=== PATIENT | male | born 1980 | race Caucasian/White ===

== ENCOUNTER → 2016-08-30 | Outpatient (CLI) | payer BC, OTHER ==
--- NOTE | 2016-08-30 10:50 | REP ---
KUB ABDOMEN AND PELVIS: Two KUB films of the abdomen and pelvis performed. No bowel obstruction is seen. There is moderate fecal material in the rectum and right colon. There are no dilated small bowel loops. No abnormal calcifications are seen. The visualized osseous structures appear unremarkable. IMPRESSION: No bowel obstruction. Moderate fecal material, rectum and right colon. Signed by Jovani Qiu MD 08/30/2016 12:15 P
== END ==
LOC: M LRY 10:04
PROVIDERS: ATTEND Physician Assistant
DX: R10.84 Generalized abdominal pain (principal)

== ENCOUNTER → 2016-09-18 | Outpatient (REF) | payer OTHER ==
[2016-09-18 12:08] LABS: MEAN CORPUSCULAR HEMOGLOBIN 31.6 pg (27.0-33.0); MEAN CORPUSCULAR HGB CONC 34.1 g/dl (32.0-36.5); MEAN CORPUSCULAR VOLUME 92.8 fl (80.0-96.0); RED CELL DISTRIBUTION WIDTH 12.9 % (11.5-14.5); WHITE BLOOD COUNT 4.8 K/mm3 (4.0-10.0)
[2016-09-18 12:16] LABS: ALBUMIN 3.8 GM/DL (3.2-5.2); ALBUMIN/GLOBULIN RATIO 1.09 (1.00-1.93); ALKALINE PHOSPHATASE 83 U/L (45-117); ALT/SGPT 55 U/L (12-78); ANION GAP 7 MEQ/L (8-16); AST/SGOT 50 U/L (15-37); BILIRUBIN,TOTAL 0.3 MG/DL (0.2-1.0); BLOOD UREA NITROGEN 12 MG/DL (7-18); CALCIUM LEVEL 9.1 MG/DL (8.5-10.1); CARBON DIOXIDE LEVEL 30 MEQ/L (21-32); CHLORIDE LEVEL 103 MEQ/L (98-107); CHOLESTEROL LEVEL 214 MG/DL (<200); CREATININE FOR GFR 1.02 MG/DL (0.70-1.30); GLOMERULAR FILTRATION RATE > 60.0 (>60); GLUCOSE, FASTING 111 MG/DL (70-105); POTASSIUM SERUM 4.5 MEQ/L (3.5-5.1); SODIUM LEVEL 140 MEQ/L (136-145); TOTAL PROTEIN 7.3 GM/DL (6.4-8.2); TRIGLYCERIDES LEVEL 106 MG/DL (<150)
[2016-09-20 00:11] LABS: Lyme Disease IgG/IgM Antibodie <0.91 ISR (0.00-0.90); Lyme Disease IgM Ab Quantitati <0.80 index (0.00-0.79)
== END ==
LOC: M SFHCLERA 08:29
PROVIDERS: ATTEND Family Medicine
DX: I10 Essential (primary) hypertension (principal)

== ENCOUNTER → 2016-12-13 | Outpatient (CLI) | payer BC, OTHER ==
--- NOTE | 2016-12-13 12:47 | REP ---
Scrotal ultrasound for testicular/epididymal mass: There are no comparison studies. The patient has had bilateral inguinal hernia repairs and history of undescended testes. Initially the patient indicates he has right mastectomy 3 years ago. There are no comparison scrotal ultrasound studies. Right testis: Measures 4.6 x 1.9 x 4.7 cm. Left testis: Measures 3.4 x 1.5 x 2.5 cm. There are no testicular masses. There is vascular flow in both testes with color Doppler assessment. The Doppler resistive index of the intraparenchymal arteries of the right testis is 0.56 and left testis 0.56. There are no testicular masses. However, there are micro calcifications in each testis. Therefore, consider placing the patient on annual scrotal ultrasound surveillance for testicular masses. There are too small right epididymal head cysts measuring approximately 2 mm in diameter each. There are no cysts in the left epididymal head . There is a tunica albuginea calcification (scrotal kisha) of no clinical significance. The intratesticular vasculature of the left testis appears mildly dilated. This is of uncertain significance. This testis is smaller size than on the right. The the patient has had meniscectomy. Impression: The left testis is smaller than the right. This is of uncertain significance in this patient with history of atherectomy and undescended testes. There are no testicular masses. However, there are bilateral testicular microcalcifications. Consider annual scrotal ultrasound surveillance for testicular masses. There are small epididymal head cysts on the right. There is a scrotal kisha no clinical significance. There is vascular flow in both testes. The vasculature of the left testes appears mildly distended. This is of uncertain clinical significance. The Doppler resistive index of each testis is symmetric. There is no varicocele. Signed by Jovani Thorne MD 12/13/2016 12:38 P
== END ==
LOC: M SMT 09:45
PROVIDERS: ATTEND Urology
DX: N50.3 Cyst of epididymis (principal); N50.89 Other specified disorders of the male genital organs

== ENCOUNTER 2017-12-31 10:44 | Day surgery (SDC) | payer BC, OTHER ==
[2017-12-31] MEDS ORDERED: ROPIvacaine 0.5% 30 ML INJECTION (J2795 PER 1MG) (10:45)
[2017-12-31] MEDS ORDERED: dexameTHASONE 10 MG/1 ML VIAL PRES.FREE (J1100) (10:45)
[2017-12-31] MEDS: LR 1,000 ML IV (11:45)
[2017-12-31] MEDS ORDERED: fentaNYL 100 MCG/2 ML INJECTION (J3010) As Ordered ×2 (11:48→11:57)
[2017-12-31] MEDS ORDERED: MIDAZOLAM INJ 2 MG/2 ML VIAL (J2250) As Ordered ×2 (11:48→11:57)
[2017-12-31] MEDS ORDERED: METOCLOPRAMIDE INJ 10MG/2ML VIAL (J2765) As Ordered (11:56)
[2017-12-31] MEDS ORDERED: LIDOCAINE 2% INJ 100 MG/5 ML SDV (FOR ANES.) As Ordered (11:56)
[2017-12-31] MEDS ORDERED: PROPOFOL 200 MG/20 ML VIAL As Ordered (11:56)
[2017-12-31] MEDS ORDERED: ROCURONIUM BROMIDE 50 MG/5 ML VIAL As Ordered (11:56)
[2017-12-31] MEDS: MIDAZOLAM INJ 2 MG/2 ML VIAL (J2250) IV (12:04)
[2017-12-31] MEDS: fentaNYL 100 MCG/2 ML INJECTION (J3010) IV (12:04)
[2017-12-31] MEDS ORDERED: PHENYLephrine HCL 500 MCG/5 ML (100MCG/ML) SYRINGE (J2370) As Ordered ×2 (13:33→14:03)
[2017-12-31] MEDS ORDERED: ONDANSETRON 4MG/2ML VIAL (J2405) As Ordered (14:32)
[2017-12-31] MEDS: EPINEPHrine 1MG/ML INJ 30ML MD-VIAL As Ordered (14:32)
[2017-12-31] MEDS ORDERED: GLYCOPYRROLATE INJ 0.2 MG/ML 2 ML VIAL As Ordered (14:32)
[2017-12-31] MEDS ORDERED: fentaNYL 100 MCG/2 ML INJECTION (J3010) IV (15:30)
[2017-12-31] MEDS ORDERED: LR 1,000 ML IV ×2 (15:30→16:00)
[2017-12-31] MEDS: ONDANSETRON 4MG/2ML VIAL (J2405) IV (15:38)
== END 2017-12-31 16:33 | disposition home or self-care (01) ==
LOC: M SDC 10:44
DX: M24.812 Other specific joint derangements of left shoulder, not elsewhere classified (principal); S43.432A Superior glenoid labrum lesion of left shoulder, initial encounter; M94.212 Chondromalacia, left shoulder; I10 Essential (primary) hypertension; K21.9 Gastro-esophageal reflux disease without esophagitis; Z79.899 Other long term (current) drug therapy; Y93.9 Activity, unspecified; Y92.9 Unspecified place or not applicable
CPT/HCPCS: 29806

== ENCOUNTER → 2018-04-03 | Outpatient (REF) | payer OTHER ==
[2018-04-03 11:40] LABS: HEMATOCRIT 48.8 % (42.0-52.0); HEMOGLOBIN 16.2 g/dl (13.5-17.5); MEAN CORPUSCULAR HEMOGLOBIN 31.4 pg (27.0-33.0); MEAN CORPUSCULAR HGB CONC 33.2 g/dl (32.0-36.5); MEAN CORPUSCULAR VOLUME 94.6 fl (80.0-96.0); PLATELET COUNT, AUTOMATED 281 10^3/uL (150-450); RED BLOOD COUNT 5.16 10^6/uL (4.30-6.10); RED CELL DISTRIBUTION WIDTH 13.1 % (11.5-14.5)
[2018-04-03 11:44] LABS: ALBUMIN/GLOBULIN RATIO 1.11 (1.00-1.93); ALKALINE PHOSPHATASE 76 U/L (45-117); ALT/SGPT 56 U/L (12-78); ANION GAP 5 MEQ/L (8-16); AST/SGOT 32 U/L (7-37); BILIRUBIN,TOTAL 0.6 MG/DL (0.2-1.0); BLOOD UREA NITROGEN 17 MG/DL (7-18); CALCIUM LEVEL 9.8 MG/DL (8.5-10.1); CARBON DIOXIDE LEVEL 31 MEQ/L (21-32); CHLORIDE LEVEL 100 MEQ/L (98-107); CHOLESTEROL LEVEL 257 MG/DL (<200); CHOLESTEROL RISK RATIO 3.059 (<5); CREATININE FOR GFR 0.99 MG/DL (0.70-1.30); GLOMERULAR FILTRATION RATE > 60.0 (>60); GLUCOSE, FASTING 102 MG/DL (70-100); HDL CHOLESTEROL 84 MG/DL (>40); LDL CHOLESTEROL 148 MG/DL (<100); NON-HDL-C 173 MG/DL; POTASSIUM SERUM 5.6 MEQ/L (3.5-5.1); SODIUM LEVEL 136 MEQ/L (136-145); TOTAL PROTEIN 7.6 GM/DL (6.4-8.2); TRIGLYCERIDES LEVEL 124 MG/DL (<150)
[2018-04-03 11:53] LABS: ESTIMATED AVERAGE GLUCOSE 120 MG/DL (60-110); HEMOGLOBIN A1c 5.8 %
[2018-04-05 00:07] LABS: Lyme Disease IgG/IgM Antibodie <0.91 ISR (0.00-0.90); Lyme Disease IgM Ab Quantitati <0.80 index (0.00-0.79)
== END ==
LOC: M SFHCLERA 08:07
DX: I10 Essential (primary) hypertension (principal); E78.00 Pure hypercholesterolemia, unspecified; R73.03 Prediabetes

== ENCOUNTER → 2019-06-16 | Outpatient (CLI) | payer BC, OTHER ==
[~2019-06-16] MED LIST: LISI40TA PO; PANT40TA3 PO
--- NOTE | 2019-06-17 06:49 | ECGEPIP ---
[facility] Test Date: 2019-06-16 Pat Name: EMILY IGLESIAS Department: Room: - Gender: Male Assistant Professor Sculpture: KARMEN : 1980 Requested By: NEETA Anderson Order Number: [id number] Reading MD: Trent Cole Measurements Intervals [place] Rate: 62 P: 38 [place]: 149 QRS: 31 QRSD: 98 T: 34 QT: 398 QTc: 405 Interpretive Statements Normal sinus rhythm with sinus arrhythmia Normal EKG otherwise Comparison tracing not on file Electronically Signed on 06-17-2019 6:48:47 EST by Trent Cole
== END ==
LOC: M EKG 08:04 → M LAB 08:04
PROVIDERS: ATTEND Orthopaedic Surgery
DX: Z01.810 Encounter for preprocedural cardiovascular examination (principal); S46.211A Strain of muscle, fascia and tendon of other parts of biceps, right arm, initial encounter; X58.XXXA Exposure to other specified factors, initial encounter; Y92.9 Unspecified place or not applicable

== ENCOUNTER → 2019-07-22 | Outpatient (REF) | payer OTHER ==
[2019-07-22 12:10] LABS: BASO # 0.1 10^3/uL (0.0-0.2); EOS # 0.2 10^3/uL (0.0-0.5); EOS % 2.4 % (0.0-3.0); HEMATOCRIT 45.1 % (42.0-52.0); HEMOGLOBIN 14.8 g/dl (13.5-17.5); LYMPH % 31.4 % (24.0-44.0); MEAN CORPUSCULAR HEMOGLOBIN 31.4 pg (27.0-33.0); MEAN CORPUSCULAR HGB CONC 32.8 g/dl (32.0-36.5); MEAN CORPUSCULAR VOLUME 95.6 fl (80.0-96.0); MONO # 0.5 10^3/uL (0.0-0.8); MONO % 8.2 % (0.0-5.0); NEUTROPHILS # 3.5 10^3/uL (1.5-8.5); NEUTROPHILS % 56.8 % (36.0-66.0); PLATELET COUNT, AUTOMATED 275 10^3/uL (150-450); RED BLOOD COUNT 4.72 10^6/uL (4.30-6.10); WHITE BLOOD COUNT 6.2 10^3/uL (4.0-10.0)
[2019-07-22 12:28] LABS: ALBUMIN 3.8 GM/DL (3.2-5.2); ALT/SGPT 37 U/L (12-78); BILIRUBIN,TOTAL 0.5 MG/DL (0.2-1.0); BLOOD UREA NITROGEN 17 MG/DL (7-18); CALCIUM LEVEL 9.4 MG/DL (8.5-10.1); CARBON DIOXIDE LEVEL 32 MEQ/L (21-32); CHLORIDE LEVEL 101 MEQ/L (98-107); CHOLESTEROL LEVEL 265 MG/DL (<200); CHOLESTEROL RISK RATIO 3.581 (<5); CREATININE FOR GFR 0.97 MG/DL (0.70-1.30); GLOMERULAR FILTRATION RATE > 60.0 (>60); GLUCOSE, FASTING 105 MG/DL (70-100); HDL CHOLESTEROL 74 MG/DL (>40); LDL CHOLESTEROL 163 MG/DL (<100); NON-HDL-C 191 MG/DL; POTASSIUM SERUM 4.8 MEQ/L (3.5-5.1); SODIUM LEVEL 137 MEQ/L (136-145); TOTAL PROTEIN 7.5 GM/DL (6.4-8.2); TRIGLYCERIDES LEVEL 142 MG/DL (<150)
[2019-07-22 12:29] LABS: HEMOGLOBIN A1c 5.5 %
== END ==
LOC: M SFHCLERA 08:18
PROVIDERS: ATTEND Nurse Practitioner Family
DX: I10 Essential (primary) hypertension (principal); R73.03 Prediabetes; E78.2 Mixed hyperlipidemia

== ENCOUNTER 2020-05-31 07:05 | Emergency (ER) | payer BC, OTHER ==
[~2020-05-31] VITALS: Ht 172.7 cm; Wt 94.0 kg
[~2020-05-31 07:05] MED LIST changes: +PANT40TA29 PO; -PANT40TA3 PO
[2020-05-31] MEDS ORDERED: ESCI20TA (07:20)
[2020-05-31] MEDS ORDERED: ALBUTEROL 90 MCG/ACT 8GM HFA INHALER INH ONE (08:00)
--- NOTE | 2020-05-31 09:17 | REP ---
INDICATION: sob, covid exposure, rhonchi. COMPARISON: None. TECHNIQUE: SINGLE PORTABLE AP VIEW OF THE CHEST WAS PERFORMED. FINDINGS: THERE IS NO ACUTE INFILTRATE OR PULMONARY EDEMA. LUNGS ARE CLEAR. HEART IS NOT SIGNIFICANTLY ENLARGED. MEDIASTINAL SILHOUETTE IS UNREMARKABLE. THE VISUALIZED OSSEOUS STRUCTURES ARE INTACT. IMPRESSION: NO ACUTE PULMONARY DISEASE. <Electronically signed by Jovani Qiu > 05/31/20 0914
[2020-05-31] MEDS ORDERED: VENTAER INH (09:46)
[2020-05-31] MEDS ORDERED: BENZ200C70 PO (09:46)
[2020-05-31 09:57] VITALS: BP 144/90
[2020-05-31 10:46] LABS: RSV AMPLIFICATION NEGATIVE (NEGATIVE)
[2020-05-31] MEDS ORDERED: PRED20TA PO (10:56)
== END 2020-05-31 10:00 | disposition home or self-care (01) ==
LOC: M ED 07:05
DX: J06.9 Acute upper respiratory infection, unspecified (principal); J98.01 Acute bronchospasm; R05 Cough; R06.02 Shortness of breath; I10 Essential (primary) hypertension; K21.9 Gastro-esophageal reflux disease without esophagitis; Z79.899 Other long term (current) drug therapy

== ENCOUNTER → 2023-02-05 | Outpatient (CLI) | payer BC, OTHER ==
[~2023-02-05] MED LIST changes: +BENZ200C70 PO; +ESCI20TA16; -LISI40TA PO; +LISI40TA4 PO; +PRED20TA PO; +VENTAER INH
[2023-02-05 12:59] LABS: BASO # 0.1 10^3/uL (0.0-0.2); BASO % 1.1 % (0.0-1.0); EOS # 0.2 10^3/uL (0.0-0.5); EOS % 3.2 % (0.0-3.0); HEMATOCRIT 43.8 % (42.0-52.0); HEMOGLOBIN 14.5 g/dl (13.5-17.5); LYMPH % 36.8 % (24.0-44.0); MEAN CORPUSCULAR HEMOGLOBIN 31.7 pg (27.0-33.0); MEAN CORPUSCULAR HGB CONC 33.1 g/dl (32.0-36.5); MEAN CORPUSCULAR VOLUME 95.8 fl (80.0-96.0); MONO # 0.5 10^3/uL (0.0-0.8); MONO % 9.7 % (2.0-8.0); NEUTROPHILS # 2.7 10^3/uL (1.5-8.5); NEUTROPHILS % 48.8 % (36.0-66.0); PLATELET COUNT, AUTOMATED 271 10^3/uL (150-450); RED BLOOD COUNT 4.57 10^6/uL (4.30-6.10); WHITE BLOOD COUNT 5.5 10^3/uL (4.0-10.0)
[2023-02-05 14:08] LABS: ALBUMIN 3.9 G/DL (3.2-5.2); ALKALINE PHOSPHATASE 80 U/L (46-116); ALT/SGPT 56 U/L (7.0-40); AST/SGOT 31 U/L (<34); BILIRUBIN,TOTAL 0.4 MG/DL (0.3-1.2); BLOOD UREA NITROGEN 13 MG/DL (9-23); CALCIUM LEVEL 9.3 MG/DL (8.5-10.1); CARBON DIOXIDE LEVEL 27 MMOL/L (20-31); CHLORIDE LEVEL 102 MMOL/L (98-107); CHOLESTEROL LEVEL 288 MG/DL (<200); CHOLESTEROL RISK RATIO 4.95 (<5); CREATININE FOR GFR 0.85 MG/DL (0.70-1.30); GLOMERULAR FILTRATION RATE > 60.0 (>60); GLUCOSE, FASTING 120 MG/DL (60-100); HDL CHOLESTEROL 58.1 MG/DL (>40); LDL CHOLESTEROL 188.3 MG/DL (<100); NON-HDL-C 229.9 MG/DL; POTASSIUM SERUM 4.9 MMOL/L (3.5-5.1); SODIUM LEVEL 137 MMOL/L (136-145); TOTAL PROTEIN 7.5 G/DL (5.7-8.2); TRIGLYCERIDES LEVEL 208 MG/DL (<150)
== END ==
LOC: M WUC 08:43
PROVIDERS: ATTEND Student in an Organized Health Care Education/Training Program
DX: K21.9 Gastro-esophageal reflux disease without esophagitis (principal); I10 Essential (primary) hypertension; M25.552 Pain in left hip; M54.50 Low back pain, unspecified

== ENCOUNTER → 2023-06-20 | Outpatient (REF) | payer BC, OTHER | LOC: M SFHCLERA 16:48 | PROVIDERS: ATTEND Physician Assistant | DX: J02.9 Acute pharyngitis, unspecified (principal); J22 Unspecified acute lower respiratory infection ==

== ENCOUNTER → 2023-08-20 | Outpatient (CLI) | payer BC, OTHER | LOC: M SOG 08:46 | PROVIDERS: ATTEND Orthopaedic Surgery | DX: M70.62 Trochanteric bursitis, left hip (principal); M16.12 Unilateral primary osteoarthritis, left hip ==

== ENCOUNTER → 2023-09-18 | Outpatient (CLI) | payer BC | LOC: M PLAIMG 07:03 | PROVIDERS: ATTEND Orthopaedic Surgery | DX: M25.552 Pain in left hip (principal) ==

== ENCOUNTER → 2023-11-19 | Outpatient (CLI) | payer BC ==
[~2023-11-19] MED LIST changes: +ISOVUE-300 61% 100ML VIAL As Ordered ONE; +LIDOCAINE 1% MDV 20ML VIAL As Ordered ONE; +methylPREDNISolone SUSP 40MG/ML 1ML VIAL (DEPO MEDROL) As Ordered ONE
== END ==
LOC: M RAD 14:56
PROVIDERS: ATTEND Orthopaedic Surgery
DX: M25.852 Other specified joint disorders, left hip (principal); M25.552 Pain in left hip
CPT/HCPCS: 20610; 77002; J0665; J1010; Q9967

== ENCOUNTER → 2023-12-21 | Outpatient (CLI) | payer BC ==
[~2023-12-21] MED LIST changes: -ISOVUE-300 61% 100ML VIAL As Ordered ONE; -LIDOCAINE 1% MDV 20ML VIAL As Ordered ONE; -methylPREDNISolone SUSP 40MG/ML 1ML VIAL (DEPO MEDROL) As Ordered ONE
== END ==
LOC: M PLAIMG 07:27
PROVIDERS: ATTEND Orthopaedic Surgery
DX: M70.52 Other bursitis of knee, left knee (principal)

== ENCOUNTER → 2024-12-10 | Outpatient (CLI) | payer BC ==
[~2024-12-10] MED LIST changes: +LISI40TA10 PO; -LISI40TA4 PO
[2024-12-10 14:14] LABS: PLATELET COUNT, AUTOMATED 278 10^3/uL (150-450)
[2024-12-10 14:18] LABS: ALT/SGPT 54 U/L (7.0-40); AST/SGOT 38 U/L (<34); CALCIUM LEVEL 9.3 MG/DL (8.5-10.1); CARBON DIOXIDE LEVEL 27 MMOL/L (20-31); CHLORIDE LEVEL 104 MMOL/L (98-107); CHOLESTEROL LEVEL 210 MG/DL (<200); CHOLESTEROL RISK RATIO 4.14 (<5); CREATININE FOR GFR 0.88 MG/DL (0.70-1.30); GLOMERULAR FILTRATION RATE > 90.0 (>60); LDL CHOLESTEROL 121.3 MG/DL (<100); NON-HDL-C 159.3 MG/DL; POTASSIUM SERUM 4.5 MMOL/L (3.5-5.1); SODIUM LEVEL 142 MMOL/L (136-145); TRIGLYCERIDES LEVEL 190 MG/DL (<150)
[2024-12-10 14:41] LABS: ESTIMATED AVERAGE GLUCOSE 111.0 MG/DL (60-110)
== END ==
LOC: M WUC 08:13
DX: Z00.00 Encounter for general adult medical examination without abnormal findings (principal)

== ENCOUNTER 2025-03-10 07:35 | Day surgery (SDC) | payer BC ==
[~2025-03-10] VITALS: Ht 172.7 cm; Wt 98.0 kg
[~2025-03-10 07:35] MED LIST changes: +LIDOCAINE 2% 100 MG/5 ML SDV (FOR ANES.) As Ordered ONE; +ROSU5TAB49 PO; +SERT50TA29 PO
[2025-03-10] MEDS ORDERED: SEMA0.252 SUBQ (08:09)
[2025-03-10 09:12] VITALS: TEMP 97
[2025-03-10 09:39] VITALS: BP 107/65; O2SAT 98
== END 2025-03-10 09:45 | disposition home or self-care (01) ==
LOC: M OPP 07:35
PROVIDERS: ATTEND Surgery
DX: Z12.11 Encounter for screening for malignant neoplasm of colon (principal); R19.5 Other fecal abnormalities; D12.6 Benign neoplasm of colon, unspecified; K57.30 Diverticulosis of large intestine without perforation or abscess without bleeding; K21.00 Gastro-esophageal reflux disease with esophagitis, without bleeding; K30 Functional dyspepsia; Z79.899 Other long term (current) drug therapy
CPT/HCPCS: 43239; 45385; 88305; J3010